=== PATIENT | female | born 1950 ===

== ENCOUNTER 2024-01-01 09:30 | Outpatient (RCR) | payer MEDICARE, SELFPAY | END 2024-02-29 10:28 | disposition home or self-care (01) | PROVIDERS: PCP Student in an Organized Health Care Education/Training Program; Visit Provider Student in an Organized Health Care Education/Training Program | DX: N39.41 Urge incontinence (principal); N94.2 Vaginismus; Z51.89 Encounter for other specified aftercare | CPT/HCPCS: 97110; 97112; 97161; 97535 ==